=== PATIENT | female | born 1965 | race Caucasian/White ===

== ENCOUNTER 2018-01-19 20:16 | Emergency (ER) | payer OTHER ==
[~2018-01-19] VITALS: Ht 157.5 cm; Wt 100.7 kg
[2018-01-19 20:43] VITALS: Ht 157.5 cm; Wt 100.7 kg
[2018-01-19 21:57] VITALS: BP 110/74
== END 2018-01-19 21:57 | disposition home or self-care (01) ==
LOC: ED 20:16
DX: G89.29 Other chronic pain (principal); M25.532 Pain in left wrist; W22.8XXA Striking against or struck by other objects, initial encounter; Y93.89 Activity, other specified; Y92.89 Other specified places as the place of occurrence of the external cause; Y99.8 Other external cause status
CPT/HCPCS: J1885

== ENCOUNTER 2018-09-21 22:11 | Emergency (ER) | payer OTHER ==
[~2018-09-21] VITALS: Ht 165.1 cm; Wt 103.4 kg
[2018-09-21 22:23] VITALS: Ht 165.1 cm; Wt 103.4 kg
[2018-09-22 00:28] VITALS: BP 118/76
== END 2018-09-22 00:28 | disposition home or self-care (01) ==
LOC: ED 22:11
DX: M25.532 Pain in left wrist (principal); X58.XXXA Exposure to other specified factors, initial encounter; Y93.89 Activity, other specified; Y92.89 Other specified places as the place of occurrence of the external cause; Y99.0 Civilian activity done for income or pay
CPT/HCPCS: J1885